=== PATIENT | male | born 1990 | race Caucasian/White ===

== ENCOUNTER 2025-03-04 07:47 | Outpatient (RCR) | payer MEDICAID, SELFPAY ==
--- NOTE | 2025-03-04 13:08 | HP.OTFCE.D ---
FCE D/C Summary Discharge text: DRISS Rupali DURBINFARZAD was seen for a one time visit for an FCE on 03/04/25 and is discharged.
--- NOTE | 2025-03-04 13:08 | HP.FCE ---
Task Lift Floor (Occasional 1-33% of Day): 65# Floor (Frequent 34-66% of Day): 32.5# Floor (Constant 67-100% of Day): 13.6# Floor PDL: Medium Knee (Occasional 1-33% of Day): 65# Knee (Frequent 34-66% of Day): 32.5# Knee (Constant 67-100% of Day): 13.6# Knee PDL: Medium Waist (Occasional 1-33% of Day): 65# Waist (Frequent 34-66% of Day): 32# Waist (Constant 67-100% of Day): 13.6# Waist PDL: Medium Shoulder (Occasional 1-33% of Day): 55# Shoulder (Frequent 34-66% of Day): 27.5# Shoulder (Constant 67-100% of Day): 11.57# Shoulder PDL: Medium Overhead (Occasional 1-33% of Day): 35# Overhead (Frequent 34-66% of Day): 17.5# Overhead (Constant 67-100% of Day): 7# Overhead PDL: Light-Medium Work Activity/Posture Bending: Frequent Ability (34-66% of day) Squatting: Frequent Ability (34-66% of day) Kneeling: Occasional Ability (1-33% of day) Reaching out: Constant Ability (67-100% of day) Reaching up: Constant Ability (67-100% of day) Sitting: Constant Ability (67-100% of day) Walking: Frequent Ability (34-66% of day) Standing: Frequent Ability (34-66% of day) Reference Reference: Duration Sedentary Sedentary Light Light Light Medium Medium Medium Heavy Very Heavy Heavy Occasional (0-33% of day) Frequent (34-66% of day) Constant (67-100% of day) 10 # Negligible Negligible 15 # 8 # Negligible 20 # 10# Negli. 35 # 18 # 7 # 50 # 25 # 10 # 75 # 100 # >100 # 38 # 50 # >50 # 15 # 20 # >20 # Patient Information Height: 1.85 m Weight:: 127.006 kg Hand Dominance: right Medical History Medical History Including Restrictions: pt states he feels he is good health health other than his obesity. pt states he will walk his dogs in the [employer] yard. Pt states he gets most of his exercise going up and down the stairs. Diagnoses Diagnoses: Hypertrophic Cardiomyopathy ( HCC) states dx 15 or 16 years ago Hypertension Asperger's Disorder ADHD MSH6-related Ansari Syndrome BMI 36-36.9 class 2 Symptoms Symptoms: pt can not recall any physical symptoms Pain Pain: No Pain Work History Work History: Pt states he last worked at a [employer] in [place]. Pt states he worked there only a few months. 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 Pt states he moved to [place] with family about 5 years ago. Pt has not worked since. pt states he did not graduate HS and does not have his GED. ( did not like [place] class) Feels this limits him from obtaining a job but reported he did not know what he would like to do for a job. Behavioral Behavioral: pt cooperative throughout session. ADLS ADLS: Pt lives with parents and two brothers ( 24 and 30 years old). mom is homemaker dad employed at [employer] Pt lives in a two story home with a basement. Pt has 2 entry stairs and flight of stairs to the basement and flight to 2nd floor both having railings. pt has tub shower combination no grab bars or adaptive equipment. Pt states he is IND. with bathing and Dressing. Pt Drives Pt states he does help his mom with the cleaning/ cooking and laundry. Pt states his mom orders groceries online but if they go to a store he will go with her. Pt states his dad or his youngest brother helps with the yard work. Physical Examination ROM: pt demo with ROM WNL Strength: Fit2 peak force testing shoulder flexion right 20# left 25# shoulder extension right 31.8# left 29.6# biceps right 32.2# left 23.1# Triceps right 27.4# left 26.8# Hip flexion right 41.9# left 35.6# Quadriceps right 22# left 24# Hamstrings 38.4# left 34# pt demo good functional strength Right Apparel Sales Associate Strength Average: 93.33 Right Apparel Sales Associate Strength Percentile: 19% Left Apparel Sales Associate Strength Average: 120.00 Left Apparel Sales Associate Strength Percentile: 69% Right Lateral Pinch Average: 23.33 Right Lateral Pinch Percentile: 50% Left Lateral Pinch Average: 22.00 Left Lateral Pinch Percentile: 50% Right Tripod Pinch Average: 18.66 Right Tripod Pinch Percentile: 25% Left Tripod Pinch Average: 18.66 Left Tripod Pinch Percentile: 25% Sensation: denies issues Fine Motor: denies issues Balance: functional reach 18" no loss of balance pt demo normal balance Non Material Handling Activities Bending: pt demo the ability to bend forward 3/3x 10/10x and 10/10x rapidly heart rate 107 and returned to 98 pt can bend on frequent ability Squatting: pt demo the ability to squat 3/3x, 10/10x and 10/10 rapidly pt heart rate 108 pt was SOB following pt put forth good effort pt can squat on frequent ability Kneeling: pt demo the ability to kneel 3/3x , 10/10x with good ability reported legs feeling tired and week stated he should probably exercise and did not realized how deconditioned he was. pt can kneel on frequent ability Reaching out/up: pt demo the ability to reach up/out /3x 10/10x and 10/10x rapidly heart rate 106 returned to 68 following 1 min rest pt can reach out/up on constant ability Walking: pt ambulates IND with reciprocal step pattern slides on his feet with good ability for 15 min. pt can ambulate on frequent ability. Standing: pt demo the ability to stand for 8 min with no apparent discomfort pt can stand on frequent ability Sitting: pt demo the ability to sit for 30 min with no apparent discomfort pt states he does sit at his computer for about two hours pt can sit on constant ability Climbing Stairs: pt demo the good ability to ascend and descend 10 steps using railing for support. Dynamic Occasional Lifting Capacity Floor Lift: pt demo the ability to lift 65# maximally from floor level with good ability. Knee Lift: pt demo the ability to lift 65# maximally from knee level with good ability. Waist Lift: pt demo the ability to lift 65# maximally from waist level with good ability. Shoulder Lift: pt demo the ability to lift 55# maximally from shoulder level with good ability. Overhead Lift: pt demo the ability to lift 35# maximally from overhead level with good ability. Carrying: pt demo the ability to carry 55# for 40 feet with good ability. Comments: pt demo good tolerance of assessment
== END 2025-03-04 19:00 | disposition home or self-care (01) ==
LOC: OT 07:47
PROVIDERS: PCP Nurse Practitioner Family; Referring Provider Nurse Practitioner Family; Visit Provider Nurse Practitioner Family
DX: F84.5 Asperger's syndrome (principal); Z15.09 Genetic susceptibility to other malignant neoplasm
CPT/HCPCS: 97750